=== PATIENT | male | born 1990 | race Caucasian/White ===

== ENCOUNTER 2018-01-31 10:14 | Emergency (ER) | payer BC, OTHER ==
[2018-01-31 10:57] VITALS: BP 132/87
--- NOTE | 2018-01-31 11:18 | UC ---
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 no fevers or chills. no sinus pain. no asthma. no ST or ear pain. had a fever of 102 at initial onset but none since then. - History of Current Complaint Chief Complaint: UCGeneralIllness Stated Complaint: COUGH, CONGESTION Time Seen by Provider: 01/31/18 10:54 Pain Intensity: 0 - Allergies/Home Medications Allergies/Adverse Reactions: Allergies Allergy/AdvReac Type Severity Reaction Status Date / Time acetaminophen [From Tylenol] Allergy See Comment Verified 01/31/18 10:46 guaifenesin [From Mucinex] Allergy See Comment Verified 01/31/18 10:46 Home Medications: Home Medications Cholecalciferol TAB* [Vitamin D TAB*] 3,000 unit PO BEDTIME 01/31/18 [History Confirmed 01/31/18] Dextromethorphan HBr [Tussin Long-Acting] 10 mg PO Q12H PRN 01/31/18 [History Confirmed 01/31/18] PMH/Surg Hx/FS Hx/Imm Hx Previously Healthy: Yes - Surgical History Surgical History: Yes Surgery Procedure, Year, and Place: PRK (EYE SX); wisdom teeth - Family History Known Family History: Positive: Respiratory Disease - brother w/ asthma - Social History Alcohol Use: Rare Substance Use Type: None Smoking Status (MU): Never Smoked Tobacco Review of Systems Constitutional: Negative Skin: Negative Eyes: Negative ENT: Sinus Congestion Respiratory: Cough Cardiovascular: Negative Gastrointestinal: Negative Genitourinary: Negative Motor: Negative Neurovascular: Negative Musculoskeletal: Negative Neurological: Negative Psychological: Negative Is Patient Immunocompromised?: No All Other Systems Reviewed And Are Negative: Yes Physical Exam Triage Information Reviewed: Yes Appearance: Well-Appearing, No Pain Distress, Well-Nourished Vital Signs: Initial Vital Signs Temp 97.6 F 01/31/18 10:51 Pulse 87 01/31/18 10:51 Resp 20 01/31/18 10:51 BP 132/87 01/31/18 10:51 Pulse Ox 96 01/31/18 10:51 Vital Signs Reviewed: Yes Eye Exam: Normal ENT: Positive: Pharyngeal erythema, Nasal congestion, Nasal drainage, TMs normal. Negative: Sinus tenderness Dental Exam: Normal Neck exam: Normal Neck: Positive: Supple, Nontender, No Lymphadenopathy Respiratory Exam: Normal Respiratory: Positive: Lungs clear, Normal breath sounds, No respiratory distress, No accessory muscle use. Negative: Crackles, Rhonchi, Stridor, Wheezing Cardiovascular Exam: Normal Cardiovascular: Positive: RRR, No Murmur, Pulses Normal Abdomen Description: Positive: Nontender, Soft Musculoskeletal Exam: Normal Neurological Exam: Normal Psychological Exam: Normal Skin Exam: Normal UC Diagnostic Evaluation - Laboratory O2 Sat by Pulse Oximetry: 96 Respiratory Course/Dx - Differential Dx/Diagnosis Differential Diagnosis/HQI/PQRI: Bronchitis, Sinusitis Provider Diagnoses: Upper resp infection, viral Discharge - Discharge Plan Condition: Stable Disposition: HOME Patient Education Materials: Upper Respiratory Infection (DC) Referrals: Damien Arevalo MD [Primary Care Provider] - Additional Instructions: There is no evidence of bacterial infection atthis time. Continue to drink fluids and get rest.
== END 2018-01-31 11:51 | disposition home or self-care (01) ==
LOC: UCCORT 10:14
DX: J06.9 Acute upper respiratory infection, unspecified (principal); Z88.8 Allergy status to other drugs, medicaments and biological substances
CPT/HCPCS: 99211; G0463

== ENCOUNTER 2018-02-05 16:39 | Emergency (ER) | payer OTHER ==
[2018-02-05 16:50] VITALS: BP 145/80
--- NOTE | 2018-02-05 16:57 | ED ---
Throat Pain/Nasal Congestion - HPI Summary HPI Summary: 28-old male presents with sinus congestion for the past couple days. He said he has had a cold for the past month. He states past couple days the sinus pressure has increased. He states he is also been having upper dental pain. he denies any abscess or drainage from his teeth. He states pain is not specific to a particular tooth but all his upper teeth. the dental pain seem to start visit and then sinus pressure developed. He denies any fevers. He denies any ear pain. He denies any headache. He hasn't tried anything for his symptoms. He has no medical conditions. He denies any sore throat or cough. He denies any chest pain or SOB. - History of Current Complaint Chief Complaint: UCGeneralIllness - Allergies/Home Medications Allergies/Adverse Reactions: Allergies Allergy/AdvReac Type Severity Reaction Status Date / Time acetaminophen [From Tylenol] Allergy See Comment Verified 02/05/18 16:50 guaifenesin [From Mucinex] Allergy See Comment Verified 02/05/18 16:50 PMH/Surg Hx/FS Hx/Imm Hx Endocrine/Hematology History: Denies: Hx Diabetes, Hx Thyroid Disease Cardiovascular History: Denies: Hx Hypertension Respiratory History: Denies: Hx Asthma - possibly, Hx Chronic Obstructive Pulmonary Disease (COPD) GI History: Denies: Hx Ulcer - Surgical History Surgery Procedure, Year, and Place: PRK (EYE SX); wisdom teeth Infectious Disease History: Yes Infectious Disease History: Denies: Hx Clostridium Difficile, Hx Hepatitis, Hx Human Immunodeficiency Virus (HIV), Hx of Known/Suspected MRSA, Hx Shingles, Hx Tuberculosis, Hx Known/ Suspected VRE, Hx Known/Suspected VRSA, History Other Infectious Disease, Traveled Outside the [place] in Last 30 Days - Family History Known Family History: Positive: Respiratory Disease - brother w/ asthma - Social History Alcohol Use: Rare Substance Use Type: Reports: None Smoking Status (MU): Never Smoked Tobacco Review of Systems Negative: Fever Positive: Dental Pain, Nasal Discharge Negative: Chest Pain Negative: Shortness Of Breath All Other Systems Reviewed And Are Negative: Yes Physical Exam Triage Information Reviewed: Yes Vital Signs On Initial Exam: Initial Vitals Temp Pulse Resp BP Pulse Ox 100.3 F 80 20 145/80 99 02/05/18 16:47 02/05/18 16:47 02/05/18 16:47 02/05/18 16:47 02/05/18 16:47 Vital Signs Reviewed: Yes Appearance: Positive: Well-Appearing Skin: Positive: Warm, Dry Head/Face: Positive: Normal Head/Face Inspection Eyes: Positive: Normal, EOMI, HEAVEN, Conjunctiva Clear ENT: Positive: Pharynx normal, Nasal congestion, TMs normal, Sinus tenderness Dental: Negative: Percussion Tenderness @ - nontender upper teeth, Gross Decay/ Caries @ Neck: Positive: Supple, Nontender, No Lymphadenopathy Respiratory/Lung Sounds: Positive: Clear to Auscultation, Breath Sounds Present Cardiovascular: Positive: Normal, RRR Abdomen Description: Positive: Nontender, Soft Bowel Sounds: Positive: Present Musculoskeletal: Positive: Normal Neurological: Positive: Normal Psychiatric: Positive: Normal Diagnostics - Vital Signs Vital Signs Temp Pulse Resp BP Pulse Ox 02/05/18 16:47 100.3 F 80 20 145/80 99 - Laboratory Lab Statement: Any lab studies that have been ordered have been reviewed, and results considered in the medical decision making process. EENT Course/Dx - Course Course Of Treatment: 28-old male presents with sinus congestion for the past couple days. He said he has had a cold for the past month. He states past couple days the sinus pressure has increased. He states he is also been having upper dental pain. he denies any abscess or drainage from his teeth. He states pain is not specific to a particular tooth but all his upper teeth. He denies any fevers. He denies any ear pain. He denies any headache. He hasn't tried anything for his symptoms. He has no medical conditions. He denies any sore throat or cough. He denies any chest pain or SOB. On exam he has sinus congestion and tenderness present. Nontender to percussion of the upper teeth. Lungs clear to auscultation. due to length of symptoms will treat as bacterial sinusitis with Augmentin. Will cover if it is a dental infection although it is unlikely. will have follow up with primary about blood pressurePatient understands and agrees with plan. - Differential Diagnoses Differential Diagnoses: Dental Abscess, Dental Caries, Sinusitis - Diagnoses Provider Diagnoses: Sinusitis, Elevated blood pressure reading Discharge - Discharge Plan Condition: Good Disposition: HOME Prescriptions: Amoxicillin/Clavulanate TAB* [Augmentin TAB 500 mg*] 500 mg PO BID #20 tab Patient Education Materials: Sinusitis (ED) Referrals: Damien Arevalo MD [Primary Care Provider] - Additional Instructions: Take antibiotic twice a day for 10 days Use saline spray in nose as much as needed Use humidifier in room or can use warm water in bowls Use OTC decongestions Follow up with primary care physician within 5 days about blood pressure as is elevated at this visit Return to ED with any new or worsening symptoms
== END 2018-02-05 17:05 | disposition home or self-care (01) ==
LOC: UCEAST 16:39
DX: J32.9 Chronic sinusitis, unspecified (principal); R03.0 Elevated blood-pressure reading, without diagnosis of hypertension; Z88.6 Allergy status to analgesic agent; Z88.8 Allergy status to other drugs, medicaments and biological substances
CPT/HCPCS: 99212; G0463

== ENCOUNTER 2018-07-06 08:19 | Emergency (ER) | payer OTHER ==
[2018-07-06 08:34] VITALS: BP 132/80
--- NOTE | 2018-07-06 08:41 | UC ---
Skin Complaint HPI - HPI Summary HPI Summary: This is [facility] documenting for attending Parish Payne MD. Pt is a 28 y/o M c/o rash onsetting 2 days ago that he noticed taking his work boots off after work. The rash is described as having a burning feeling and pain is rated a 2/10, per comp. assessment. Assoc. Sx: erythema, itchy, burning. Denies: fever. 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 He reports showering when he gets home from work every day. PMHx: Athletes foot. - History of Current Complaint Time Seen by Provider: 07/06/18 08:25 Stated Complaint: RASH Hx Obtained From: Patient Onset/Duration: Gradual Onset, Lasting Days - 2 days, Still Present Current Severity: Mild Pain Intensity: 2 Pain Scale Used: 0-10 Numeric Location: Foot (Right), Foot (Left) Character: Redness, Painful - burning Aggravating Factor(s): Clothing - work boots Associated Signs & Symptoms: Negative: Fever - Allergy/Home Medications Allergies/Adverse Reactions: Allergies Allergy/AdvReac Type Severity Reaction Status Date / Time acetaminophen [From Tylenol] Allergy See Comment Verified 07/06/18 08:31 guaifenesin [From Mucinex] Allergy See Comment Verified 07/06/18 08:31 Home Medications: Home Medications Pantoprazole Sodium 20 mg PO DAILY 07/06/18 [History Confirmed 07/06/18] Review of Systems Constitutional: Other - NEG: fever Skin: Rash - Bilat foot/ankle All Other Systems Reviewed And Are Negative: Yes PMH/Surg Hx/FS Hx/Imm Hx Endocrine History: Other Other Endocrine History: NEG: DM Cardiovascular History: Other Other Cardiovascular History: NEG: CAD, HTN. - Surgical History Surgical History: Yes Surgery Procedure, Year, and Place: PRK (EYE SX); wisdom teeth - Family History Known Family History: Positive: Hypertension, Diabetes, Respiratory Disease - brother w/ asthma - Social History Occupation: Employed Full-time Lives: With Family Alcohol Use: Rare Substance Use Type: None Smoking Status (MU): Never Smoked Tobacco Physical Exam - Summary Physical Exam Summary: General: well-appearing, no pain distress Skin: warm, color reflects adequate perfusion, dry. Dry errythemous rash with satellite lesions of distal foot continuous between toes; (-) drainage. Head: normal Eyes: EOMI, HEAVEN ENT: normal Neck: supple, nontender Respiratory: CTA, breath sounds present Cardiovascular: RRR Abdomen: soft, nontender Bowel: present Musculoskeletal: normal, strength/ROM intact Neurological: sensory/motor intact, A&O x3 Psychological: affect/mood appropriate Triage Information Reviewed: Yes Vital Signs Reviewed: Yes Course/Dx - Diagnoses Provider Diagnoses: RASH B/L FEET. B/L TINEA PEDIS Discharge - Sign-Out/Discharge Documenting (check all that apply): Patient Departure - Discharge Plan Condition: Stable Disposition: HOME Prescriptions: Cephalexin CAP* [Keflex CAP*] 500 mg PO TID #21 cap Clotrimazole 1% CREAM* [Clotrimazole 1%*] 1 applic TOPICAL BID #1 tube Tolnaftate [Tinactin] 1 applic TOPICAL BID #108 gm Patient Education Materials: Athlete's Foot (ED), Acute Rash (ED) Referrals: Damien Arevalo MD [Primary Care Provider] - Tarik Cruz MD [Medical Doctor] - Additional Instructions: FOLLOW UP WITH YOUR [facility] DO[facility] OR DERMATOLOGY IF NOT COMPLETELY IMPROVED. GET RECHECKED FOR ANY WORSENING OF YOUR CONDITION OR QUESTIONS OR CONCERNS. - Billing Disposition and Condition Condition: STABLE Disposition: Home
== END 2018-07-06 08:50 | disposition home or self-care (01) ==
LOC: UCEAST 08:19
DX: B35.3 Tinea pedis (principal); R21 Rash and other nonspecific skin eruption; Z88.6 Allergy status to analgesic agent; Z88.8 Allergy status to other drugs, medicaments and biological substances; Z82.49 Family history of ischemic heart disease and other diseases of the circulatory system; Z83.3 Family history of diabetes mellitus; Z82.5 Family history of asthma and other chronic lower respiratory diseases
CPT/HCPCS: 99212; G0463

== ENCOUNTER 2018-10-09 13:24 | Emergency (ER) | payer OTHER ==
[2018-10-09 13:46] VITALS: BP 137/71
--- NOTE | 2018-10-09 13:54 | UC ---
General HPI - HPI Summary HPI Summary: 28 yo male presents with 2 complaints: 1) Over the last 3-4 weeks he has noticed increasing nausea in the morning minutes after waking. He tells me that he has a hx of GERD and is taking pantoprazole in the morning and this helps, but not until mid morning. 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 He sometimes eats before he goes to bed, but has never paid attention to if his nausea is worse in the morning after doing so. No changes in diet recently. 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 He says that throughout the day while at work he will have 3-5 seconds of feeling lightheaded. Not accompanied by SOB or chest pain. His symptoms will resolve spontaneously and are aggravated by nothing. He does not have these symptoms on his day off or when he is at home. His , with him today, believes this is anxiety related. Pt denies fever, chills, cold sxs, SOB, chest pain, abdominal pain, d/c, dysuria. [facility] - History of Current Complaint Chief Complaint: UCGeneralIllness Stated Complaint: NEASEOUS,FATIGUE,LIGHTHEADED Time Seen by Provider: 10/09/18 13:54 Hx Obtained From: Patient Current Severity: None Pain Intensity: 0 - Allergy/Home Medications Allergies/Adverse Reactions: Allergies Allergy/AdvReac Type Severity Reaction Status Date / Time acetaminophen [From Tylenol] Allergy See Comment Verified 10/09/18 13:41 guaifenesin [From Mucinex] Allergy See Comment Verified 10/09/18 13:41 PMH/Surg Hx/FS Hx/Imm Hx GI/ History: Gastroesophageal Reflux - Surgical History Surgical History: Yes Surgery Procedure, Year, and Place: PRK (EYE SX); wisdom teeth - Family History Known Family History: Positive: Hypertension, Diabetes, Respiratory Disease - brother w/ asthma - Social History Occupation: Employed Full-time Lives: With Family Alcohol Use: Rare Substance Use Type: None Smoking Status (MU): Never Smoked Tobacco Review of Systems All Other Systems Reviewed And Are Negative: Yes Constitutional: Positive: Negative Skin: Positive: Negative Eyes: Positive: Negative ENT: Positive: Negative Respiratory: Positive: Negative Cardiovascular: Positive: Negative Gastrointestinal: Positive: Nausea Genitourinary: Positive: Negative Motor: Positive: Negative Neurovascular: Positive: Negative Musculoskeletal: Positive: Negative Neurological: Positive: Other - Lightheaded Psychological: Positive: Negative Physical Exam - Summary Physical Exam Summary: GENERAL: NAD. WDWN. No pain distress. SKIN: No rashes, sores, lesions, or open wounds. NECK: Supple. Nontender. No lymphadenopathy. CHEST: CTAB. No r/r/w. No accessory muscle use. Breathing comfortably and in no distress. CV: RRR. Without m/r/g. Pulses intact. Cap refill <2seconds ABDOMEN: Soft. NTTP. No distention or guarding. No CVA tenderness. Bowel sounds present MSK: FROM in B/L UEs and LEs with symmetric strength. NEURO: A&Ox3. Ability to follow 2-step directions, and attention intact. CN: II : Peripheral loco intact. Vision normal. III, IV, : EOMI. No nystagmus. PERRLA. V: Sensations intact and symmetric. Opens mouth and clenches teeth. VII : No facial asymmetry. Forehead wrinkles. Grins, shuts eyes, frowns, puffs cheeks. VIII: Hearing intact to finger rub. IX, X: Swallows and coughs. Uvula midline. XI: Shrugs shoulders. Turns head against resistance. XII: No tongue deviation [id number] are intact. Gait with normal base. Romberg: maintains balance, no pronator drift. Normal speech. No facial drooping. PSYCH: Age appropriate behavior. Triage Information Reviewed: Yes Vital Signs: Initial Vital Signs Temp 98.9 F 10/09/18 13:38 Pulse 90 10/09/18 13:38 Resp 15 10/09/18 13:38 BP 137/71 10/09/18 13:38 Pulse Ox 98 10/09/18 13:38 Vital Signs Reviewed: Yes Course/Dx - Course Course Of Treatment: EKG: NSR 67bpm. No ST changes as read by Dr. Snyder. I suspect his nausea in the morning time is related to GERD and poor diet. I advised him to increase his 20mg QD pantoprazole to 40mg QD and to refrain from eating before bedtime. Regarding his lightheadedness, this could be anxiety related or situational as he does not have these symptoms on days off or outside of work. I recommended he schedule a f/u with his PCP as soon as possible for further investigation. - Differential Dx - Multi-Symptom Provider Diagnoses: GERD. Nausea. Lightheadedness Discharge - Sign-Out/Discharge Documenting (check all that apply): Patient Departure All imaging exams completed and their final reports reviewed: No Studies - Discharge Plan Condition: Stable Disposition: HOME Patient Education Materials: Gastroesophageal Reflux Disease (ED) Referrals: Suzanne Reddy [Primary Care Provider] - As Soon As Possible Additional Instructions: If you develop a fever, shortness of breath, chest pain, new or worsening symptoms - please call your PCP or go to the ED. 1) Please schedule a follow up appointment with your PCP as soon as possible 2) May increase your Pantoprazole to 40mg once a day - Billing Disposition and Condition Condition: STABLE Disposition: Home - Attestation Statements Provider Attestation: I was available for consult. This patient was seen by the FREEMAN. The patient was not presented to, seen by, or examined by me. -Liz
== END 2018-10-09 14:36 | disposition home or self-care (01) ==
LOC: UCCORT 13:24
DX: K21.9 Gastro-esophageal reflux disease without esophagitis (principal); R42 Dizziness and giddiness; Z88.8 Allergy status to other drugs, medicaments and biological substances
CPT/HCPCS: 93005; 99211; G0463